=== PATIENT | female | born 1985 | race Caucasian/White ===

== ENCOUNTER 2018-01-11 13:54 | Emergency (ER) | payer MEDICAID ==
[~2018-01-11] VITALS: Ht 165.1 cm; Wt 82.6 kg
[2018-01-11 14:11] VITALS: BP_SYST 131
--- NOTE | 2018-01-11 14:12 | NUR ---
Note undone in EDM - 01/11/18 at 1430 by [email or web address] # 20 gauge angiocath placed to LAC. Use of asceptic technique. Opsite placed over site. Blood return noted. Blood for lab drawn from site. Flushed with 10 cc of normal saline. No evidence of infiltration noted. Patient tolerated well.
--- NOTE | 2018-01-11 14:14 | NUR ---
Patient to ER bed H2 to gown for evaluation. Side rails up.
--- NOTE | 2018-01-11 14:16 | NUR ---
# 20 gauge angiocath placed to LAC. Use of asceptic technique. Opsite placed over site. Blood return noted. Blood for lab drawn from site. Flushed with 10 cc of normal saline. No evidence of infiltration noted. Patient tolerated well.
--- NOTE | 2018-01-11 14:20 | NUR ---
Pt C/O of itching and welts on her arms and neck. Pt states she thinks she is having an allergic reaction to advil. Pt states she took advil at approximately 1230 and an hour later began to feel flush and itchy on her arms and neck. Upon arrive pt had visible welts and redness to both arms. Pt denies sob but states her speech has been affected. Pt's vitals are stable and will continue to monitor.
[2018-01-11] MEDS ORDERED: EPINEPHrine 1 MG/ML AMP ONE (14:27)
[2018-01-11] MEDS ORDERED: methylPREDNISolone SOD SUCC/PF 62.5 MG/ML VIAL IVP ONE (14:30)
[2018-01-11] MEDS ORDERED: EPINEPHrine 1 MG/ML AMP SUBCUT ONE (14:30)
[2018-01-11] MEDS ORDERED: NACL 0.9% 1,000 ML IV ONE (14:30)
[2018-01-11] MEDS ORDERED: FAMOTIDINE PF 20 MG/2 ML VIAL IVP ONE (14:30)
[2018-01-11] MEDS ORDERED: DIPHENHYDRAMINE INJ 50 MG/ML VIAL IVP ONE (14:30)
--- NOTE | 2018-01-11 14:30 | NUR ---
Pt recieved IV benedryl, solumedrol, and famotidine and is tolerating well.
--- NOTE | 2018-01-11 14:56 | NUR ---
ER Dr. Rutherford at bedside examining patient.
--- NOTE | 2018-01-11 15:55 | NUR ---
Patient given written and verbal discharge instructions and verbalizes understanding. ER MD discussed with patient the results and treatment provided. Patient in stable condition. ID arm band removed. IV catheter removed intact and dressing applied, no active bleeding. Rx of EPI PEN, ZYRTEC, BENADRYL, PEPCID, PREDNOSONE given. Patient educated on pain management and to follow up with PMD. Pain Scale 0/10. Opportunity for questions provided and answered. Medication side effect fact sheet provided.
[2018-01-11 15:57] VITALS: BP_SYST 114
== END 2018-01-11 15:55 | disposition home or self-care (01) ==
LOC: SED 13:54
DX: T78.40XA Allergy, unspecified, initial encounter (principal); R03.0 Elevated blood-pressure reading, without diagnosis of hypertension; X58.XXXA Exposure to other specified factors, initial encounter
CPT/HCPCS: 96374; 96375; 99284; J0171; J1200; J2930; J3490; J7030

== ENCOUNTER 2018-07-25 16:12 | Emergency (ER) | payer OTHER, MEDICAID ==
[~2018-07-25] VITALS: Ht 167.6 cm; Wt 83.0 kg
[2018-07-25 16:15] VITALS: BP_SYST 149
[2018-07-25] MEDS ORDERED: KETOROLAC TROMETHAMINE 60 MG/2 ML VIAL IM ONE (16:45)
[2018-07-25] MEDS ORDERED: HYDROcodone/ACETAMIN 10-325 MG TAB PO ONE (17:15)
[2018-07-25 17:29] VITALS: BP_SYST 149
== END 2018-07-25 17:32 | disposition home or self-care (01) ==
LOC: SED 16:12
DX: R07.81 Pleurodynia (principal); R03.0 Elevated blood-pressure reading, without diagnosis of hypertension
CPT/HCPCS: 71045; 71100; 81025; 96372; 99284; J1885